=== PATIENT | male | born 2005 | race Caucasian/White ===

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

== ENCOUNTER 2024-07-01 04:05 | Emergency (ER) | payer BC ==
[2024-07-01 04:21] VITALS: BP 140/85; PULSE 58
[2024-07-01] MEDS: Ibuprofen 600 MG Tab PO ONE (04:26)
[2024-07-01] MEDS: Acetaminophen 500 MG Tab PO ONE (04:26)
[2024-07-01] MEDS: Amoxicillin/Clavulanate K 875-125 MG Tab PO ONE (04:27)
== END 2024-07-01 04:35 | disposition home or self-care (01) ==
LOC: MW.ED 04:05
DX: H66.91 Otitis media, unspecified, right ear (principal); Z75.8 Other problems related to medical facilities and other health care; Z79.899 Other long term (current) drug therapy
CPT/HCPCS: 99282; A9270; 99283